=== PATIENT | male | born 1985 | race Caucasian/White ===

== ENCOUNTER 2018-09-13 16:41 | Emergency (ER) | payer MEDICAID ==
[~2018-09-13] VITALS: Ht 162.6 cm; Wt 64.4 kg
[2018-09-13 16:47] VITALS: BP 125/69; PULSE 63; RESP 18; Ht 162.6 cm; Wt 64.4 kg
[2018-09-13] MEDS ORDERED: KETOROLAC 60 MG INJ IM STA (18:43)
[2018-09-13] MEDS ORDERED: IBUP-1542 PO (19:49)
--- NOTE | 2018-09-13 20:44 | ERD ---
ER Documentation Chief Complaint Chief Complaint R upper back pain X 2 wks, progressively worse HPI 32-year-old male patient with no significant past medical history presents ED complaining of right upper back pain that started 2 days ago. Patient reports sometimes he also gets rotations. This is been going on for the last 2 weeks. Denies any nausea, vomiting, diarrhea, neck stiffness. Patient denies any injuries. Denies any wheezing, shortness of breath, recent traveling. ROS All systems reviewed and are negative except as per history of present illness. Medications Home Meds Active Scripts Ibuprofen* (Motrin*) 600 Mg Tab, 600 MG PO Q6, #30 TAB Prov:AMANDA MARROQUINRula GARZA 09/13/18 Allergies Allergies: Coded Allergies: No Known Allergy (Unverified , 09/13/18) PMhx/Soc Medical and Surgical Hx: pt denies Medical Hx, pt denies Surgical Hx Hx Alcohol Use: No Hx Substance Use: No Hx Tobacco Use: No Smoking Status: Never smoker FmHx Family History: No diabetes, No coronary disease Physical Exam Vitals Vital Signs Date Temp Pulse Resp B/P (MAP) Pulse Ox O2 O2 Flow FiO2 Time Delivery Rate 09/13/18 98.1 63 18 125/69 98 16:47 (87) Physical Exam Const: Zdt-khj-qiuilathm, well-nourished. In no acute distress. Head: Atraumatic, normocephalic. No hematoma. No bonds sign. Eyes: Normal Conjunctiva without injection. No purulent discharge. PERRL. EOMI ENT: Normal external ear. Ear canal without erythema. Tympanic membrane pearly rondon without effusion or bulging. Nasal canal clear with normal turbinates. Moist oropharynx without tonsillar exudates. Non-erythematous pharynx. Uvula midline. No drooling. No trismus. Neck: Full range of motion. No meningismus. No cervical lymphadenopathy. Resp: Clear to auscultation bilaterally. No wheezing, rhonchi, rales, or crackles. No accessory muscle use. No retractions. Cardio: Regular rate and rhythm. No murmurs, rubs or gallops. Abd: Soft, non tender, non distended. Normal bowel sounds. No palpable masses. No rebound tenderness. No guarding. Skin: No petechiae or rashes Back: No midline tenderness. No CVA tenderness. Ext: No cyanosis, or edema. Neur: Awake and alert. Psych: Normal Mood and Affect Results 24 hrs Current Medications Medications Dose Sig/Lizzy Start Time Status Last (Trade) Ordered Route PRN Stop Time Admin Dose Reason Admin Ketorolac 60 mg ONCE STAT 09/13/18 DC 09/13/18 Tromethamine IM 18:43 18:51 (Toradol) 09/13/18 18:46 Procedures/MDM 32-year-old male patient with no significant past medical history presents ED complaining of right upper back pain that started about 2 weeks ago. Patient is afebrile and nontoxic-appearing. EKG reviewed and interpreted by Dr. Betts Rate/Rhythm: [55 bpm, Normal Sinus Rhythm] No ectopy, no ST elevations, normal axis. QRS, ST, T-waves: [No changes consistent w/ acute ischemia] Impression: [No evidence of ischemia or arrhythmia] Patient's pain is likely secondary to musculoskeletal pain. Low suspicion for acute myocardial infarction, pneumothorax, pneumonia, cardiac tamponade, Dilym-Aeghxchna-Fytdu Syndrome, Brugada Syndrome, pulmonary embolism, AAA, ao rtic dissection, thoracic aortic dissection, endocarditis, myocarditis, pericarditis, cocaine-related ischemia, Boerhaave's syndrome, cardiac dysrhythmias,meningitis, intracranial bleed, seizure, stroke, TIA or other emergent conditions. Patient is ambulating here in the ED without difficulty. Denies saddle anesthesia, numbness or tingling, urine or bowel incontinence, weakness. Low suspicion for cauda equina syndrome, cord compression, nephrolithiasis, aortic aneurysm, aortic dissection, epidural abscess, spinal hematoma, malignancy, pyelonephritis, or other emergent conditions. Diagnosis: Upper back pain, Palpitations Discharge medications: Ibuprofen Follow up with primary care physician in 1-2 days. Instructed patient to return to the ED sooner for any worsening symptoms. Patient's questions were answered. Patient is hemodynamically stable. Patient understood and agreed with discharge plan. Patient discharged stable. Disclaimer: Inadvertent spelling and grammatical errors are likely due to EHR/dictation software use and do not reflect on the overall quality of patient care. Also, please note that the electronic time recorded on this note does not necessarily reflect the actual time of the patient encounter. Departure Diagnosis: Primary Impression: Upper back pain Additional Impression: Palpitations Condition: Stable Patient Instructions: Back Pain (Acute Or Chronic), Palpitations Referrals: [facility] YOU HAVE RECEIVED A MEDICAL SCREENING EXAM AND THE RESULTS INDICATE THAT YOU DO NOT HAVE A CONDITION THAT REQUIRES URGENT TREATMENT IN THE EMERGENCY DEPARTMENT. FURTHER EVALUATION AND TREATMENT OF YOUR CONDITION CAN WAIT UNTIL YOU ARE SEEN IN YOUR DOCTORS OFFICE WITHIN THE NEXT 1-2 DAYS. IT IS YOUR RESPONSIBILITY TO MAKE AN APPOINTMENT FOR FOLOW-UP CARE. IF YOU HAVE A PRIMARY DOCTOR --you should call your primary doctor and schedule an appointment IF YOU DO NOT HAVE A PRIMARY DOCTOR YOU CAN CALL OUR PHYSICIAN REFERRAL HOTLINE AT IF YOU CAN NOT AFFORD TO SEE A PHYSICIAN YOU CAN CHOSE FROM THE FOLLOWING [facility] [address] [facility]. [facility] [address] [facility]. [email or web address] [address] [facility] [facility] [address] [facility] [address] [facility]. [facility] [address] [facility]. [facility] YOU HAVE RECEIVED A MEDICAL SCREENING EXAM AND THE RESULTS INDICATE THAT YOU DO NOT HAVE A CONDITION THAT REQUIRES URGENT TREATMENT IN THE EMERGENCY DEPARTMENT. FURTHER EVALUATION AND TREATMENT OF YOUR CONDITION CAN WAIT UNTIL YOU ARE SEEN IN YOUR DOCTORS OFFICE WITHIN THE NEXT 1-2 DAYS. IT IS YOUR RESPONSIBILITY TO MAKE AN APPOINTMENT FOR FOLOW-UP CARE. IF YOU HAVE A PRIMARY DOCTOR --you should call your primary doctor and schedule and appointment IF YOU DO NOT HAVE A PRIMARY DOCTOR YOU CAN CALL OUR PHYSICIAN REFERRAL HOTLINE AT . IF YOU CAN NOT AFFORD TO SEE A PHYSICIAN YOU CAN CHOSE FROM THE FOLLOWING [facility]: [facility] [address] [place] [address] [facility] [address] [place] [address] [facility] + [facility] [address] [place] [address] [facility] URGENT [facility]/SPECIALTIES Additional Instructions: Call your primary care doctor TOMORROW for an appointment during the next 2-3 days.See the doctor sooner or return here if your condition worsens before your appointment time. AMANDA MARROQUIN PA-C Sep 13, 2018 20:44
== END 2018-09-13 19:55 | disposition home or self-care (01) ==
LOC: FTE 16:41
DX: M54.6 Pain in thoracic spine (principal); R00.2 Palpitations
CPT/HCPCS: 71045; 93005; J1885; 96372

== ENCOUNTER 2018-12-04 16:07 | Emergency (ER) | payer SELFPAY ==
[~2018-12-04] VITALS: Ht 162.6 cm; Wt 66.0 kg
[~2018-12-04 16:07] MED LIST: IBUP-1542 PO
[2018-12-04 16:19] VITALS: BP 122/72; PULSE 61; RESP 18; Ht 162.6 cm; Wt 66.0 kg
--- NOTE | 2018-12-04 16:30 | ERD ---
ER Documentation Chief Complaint Chief Complaint anxiety; headache; dizziness; nauseous; shakiness x 3 days HPI 32-year-old male, previously healthy, presents to the emergency department, c omplaining of dizziness, headache, nausea and anxiety for approximately 3 days. The patient states that he has been under a lot of stress and persistent worrying about health and family. She has had similar episodes in the past but less intense. he is not taking any medication at this time. History provided by patient. ROS All systems reviewed and are negative except as per history of present illness. Medications Home Meds Active Scripts Acetaminophen* (Tylenol*) 325 Mg Tablet, 2 TAB PO Q6 PRN for PAIN AND OR ELEVATED TEMP, #20 TAB Prov:BI ROSE MD 12/04/18 Lorazepam* (Ativan*) 0.5 Mg Tablet, 0.5 MG PO BID PRN for ANXIETY, #10 TAB Prov:BI ROSE MD 12/04/18 Ibuprofen* (Motrin*) 600 Mg Tab, 600 MG PO Q6, #30 TAB Prov:AMANDA MARROQUIN PA-C 09/13/18 Allergies Allergies: Coded Allergies: No Known Allergy (Unverified , 09/13/18) PMhx/Soc Medical and Surgical Hx: pt denies Medical Hx, pt denies Surgical Hx Hx Alcohol Use: No Hx Substance Use: No Hx Tobacco Use: No FmHx Family History: diabetes, other (Father liver cancer); No coronary disease Physical Exam Vitals Vital Signs Date Temp Pulse Resp B/P (MAP) Pulse Ox O2 O2 Flow FiO2 Time Delivery Rate 12/04/18 97.6 61 18 122/72 98 16:19 (89) Physical Exam Const: No acute distress Head: Atraumatic Eyes: Normal Conjunctiva ENT: Normal External Ears, Nose and Mouth. Neck: Full range of motion. No meningismus. Resp: Clear to auscultation bilaterally Cardio: Regular rate and rhythm, no murmurs Abd: Soft, non tender, non distended. Normal bowel sounds Skin: No petechiae or rashes Back: No midline or flank tenderness Ext: No cyanosis, or edema Neur: Awake and alert Psych: Normal Mood and Affect Procedures/MDM Vital signs stable, Physical exam unremarkable, neurovascular exam intact. Differential diagnosis include but not limited to: Depression, anxiety, migraine, thyroid disease, electrolyte imbalance. Low suspicion for acute coronary event, aortic dissection, CVA. Physical examination and clinical presentation consistent most likely with anxiety. During the ED course the patient remained stable, no new complaints. Treatment options, results and clinical impression discussed with patient who agrees with management. The patient is stable to be treated outpatient and will be discharged home with a Rx for lorazepam, some side effects of prescribed medications (headache, rash, nausea, vomiting, diarrhea, drowsiness, habituatio n, bleeding, hypertension, interactions with other medications) were reviewed. The patient was instructed to follow up with the primary care provider in the next 48h. If symptoms persist, worsen or new symptoms develop, then patient should return to the ED immediately. Instructions explained and given directly by me to the patient with acknowledgment and demonstrated understanding. Disclaimer: Inadvertent spelling and grammatical errors are likely due to EHR/dictation software use and do not reflect on the overall quality of patient care. Also, please note that the electronic time recorded on this note does not necessarily reflect the actual time of the patient encounter. Departure Diagnosis: Primary Impression: Multiple complaints Additional Impression: Anxiety Condition: Stable Additional Instructions: Thank you very much for allowing us to participate in your care. Your health and safety is our top priority at [facility]. The evaluation in the emergency department has been done to rule out an acute emergency. Chronic, oqb-gopm-zxwsskcedtc conditions may have not been evaluated; therefore, you need to follow up with a primary care provider in the next 48h. If symptoms persist, worsen or new symptoms develop, then patient should return to the ED immediately. Call your primary care doctor TOMORROW for an appointment during the next 2-4 days and bring all the information provided. Have prescriptions filled and follow precisely the directions on the label. If the symptoms get worse and your provider is unavailable, return to the Emergency Department immediately. BI ROSE MD Dec 04, 2018 16:30
[2018-12-04] MEDS ORDERED: ACET325T33 PO (16:36)
[2018-12-04] MEDS ORDERED: LORA-441 PO (16:36)
== END 2018-12-04 16:37 | disposition home or self-care (01) ==
LOC: E/R 16:07
DX: F41.9 Anxiety disorder, unspecified (principal); R51 Headache; R42 Dizziness and giddiness; R11.0 Nausea; R25.1 Tremor, unspecified; Z63.8 Other specified problems related to primary support group
CPT/HCPCS: 99283